=== PATIENT | male | born 1990 | race Hispanic/Latino ===

== ENCOUNTER 2023-04-14 14:18 | Emergency (ER) | payer OTHER ==
[~2023-04-14] VITALS: Ht 170.2 cm; Wt 98.4 kg
[2023-04-14 14:20] VITALS: BP 124/76
[2023-04-14] MEDS ORDERED: AMOX500C2 PO (16:25)
[2023-04-14] MEDS ORDERED: CEFTRIAXONE 1G VIAL IM ONE (16:30)
== END 2023-04-14 16:41 | disposition home or self-care (01) ==
LOC: EDH 14:18
DX: J02.0 Streptococcal pharyngitis (principal); M79.10 Myalgia, unspecified site; Z20.822 Contact with and (suspected) exposure to COVID-19
CPT/HCPCS: 99283; 87635; 87880; 87804 ×2; 96372; C9803; J0696

== ENCOUNTER 2024-04-18 11:07 | Emergency (ER) | payer BC ==
[~2024-04-18] VITALS: Ht 170.2 cm; Wt 97.5 kg
[~2024-04-18 11:07] MED LIST: AMOX500C2 PO
[2024-04-18] MEDS: IBUPROFEN 800 MG TAB PO ONE (12:28)
[2024-04-18 13:59] VITALS: BP 124/71; PULSE 64; RESP 18; O2SAT 98
== END 2024-04-18 14:02 | disposition home or self-care (01) ==
LOC: EDH 11:07
DX: G56.01 Carpal tunnel syndrome, right upper limb (principal); M79.644 Pain in right finger(s); M25.531 Pain in right wrist
CPT/HCPCS: 29125; 73130

== ENCOUNTER 2024-11-16 15:32 | Emergency (ER) | payer BC ==
[~2024-11-16] VITALS: Ht 167.6 cm; Wt 90.7 kg
[2024-11-16 15:42] VITALS: BP 155/90; PULSE 49; RESP 16; TEMP 98.6; O2SAT 100
[2024-11-16] MEDS ORDERED: CLIN-141 PO (15:46)
[2024-11-16] MEDS ORDERED: IBUP-2077 PO (15:46)
--- NOTE | 2024-11-16 15:46 | ERN ---
ED Note History of Present Illness Stated Complaint: HEAD PAIN Chief Complaint: Tooth Ache/Pain Time Seen by MD: 15:34 Dictation: Patient is a 34-year-old male here with complaints of dental pain and face pain onset yesterday. No fever no chills no nausea vomiting. NIH is 0. Allergies: Coded Allergies: No Known Allergies (Unverified Allergy, Unknown, 04/14/23) Home Meds Active Scripts Ibuprofen (Ibuprofen 800 mg Tab) 800 Mg Tab, 800 MG PO Q8H PRN for fever or pain, #30 TAB 0 Refills Prov:ELIZABETH MAIN [employer] 11/16/24 Clindamycin HCl (Clindamycin HCl) 300 Mg Capsule, 1 CAP PO QID for 10 Days, #40 CAP 0 Refills Prov:ELIZABETH MAIN [employer] 11/16/24 Amoxicillin (Amoxicillin) 500 Mg Capsule, 500 MG PO BID for 7 Days, #14 CAP 0 Refills Prov:TERESA SEGOVIA [employer] 04/14/23 Past Medical History Past Medical History: No Pertinent History Surgical History: Other Surgical History Other: KNEE SURGERY RN Note Reviewed/Agreed w/PFSH: Yes Review of System Dictation CONSTITUTIONAL: Negative except for HPI HEAD/FACE: Negative except for HPI EENT: Negative except for HPI dental pain RESPIRATORY: Negative except for HPI GASTROINTESTINAL/ABDOMINAL: Negative except for HPI GENITOURINARY: Negative except for HPI MUSCULOSKELETAL: Negative except for HPI INTEGUMENTARY: Negative except for HPI NEUROLOGICAL/PSYCH: Negative except for HPI HEMATOLOGIC/LYMPHATIC: Negative except for HPI All Systems Negative, Except as noted above. 13 point review of systems assessed and all negative except for above. Initial Vital Sign VS Vital Signs Date Time Temp Pulse Resp B/P (MAP) Pulse Ox O2 Delivery O2 Flow Rate FiO2 11/16/24 15:38 98.6 49 16 155/90 100 Room Air 0 11/16/24 15:42 21 Physical Exam Dictation Vital Signs reviewed General Appearance: Alert, oriented x 3, mild acute distress, well developed, nourished. Head and Face: non-traumatic. Eyes: PERRL, pink conjunctivas, eyelid no trauma, anterior chamber with arcus senilis. Ears: Pinnas intact and no signs of trauma or erythema ear canals clear and no discharge TM no erythema Nose: No discharge, no bleeding. Oropharynx: Mouth normal, tongue pink, dental caries with mild gingival tenderness at tooth 2. pharynx clear,no erythema, tonsils no exudates, no abscesses noted, mucous membrane moist Neck: Supple, non-tender, no thyromegaly, no masses, no JVD, no bruits Breast:Deferred Chest:No tenderness, no crepitus, no paradoxical movement, no retractions Lungs:Clear, well-ventilated, symmetric, no rales, no wheezing, no rhonchi, no stridor, good breath sounds bilaterally Heart: Regular rate, regular rhythm, no murmur, no gallops Vascular: no peripheral edema, Abdomen: Soft, positive bowel sounds, nondistended, no guarding, nontender, no rebound, no masses no hepatomegaly, no splenomegaly, no Spence's sign, no hernias. Rectal: Deferred Genital: Deferred Neurological: Normal speech, motor function intact, sensory function intact Musculoskeletal: Neck nontender, full range of motion, back nontender, full range of motion, Extremities: nontender, full range of motion Skin: Color pink, dry, no turgor, no rash, no lacerations, no abrasions, no contusions. Lymphatic: Deferred Results (Laboratory/Radiology) Labs Reviewed?: Yes ED Course ED Course Orders Procedure Category Date Status Time Ketorolac 60mg/2ml PHA 11/16/24 Complete (Toradol 60mg/2ml) 16:00 Current Medications Medications (Trade) Dose Ordered Sig/Anaid Route PRN Reason Start Time Stop Time Status Last Admin Dose Admin Ketorolac Tromethamine (toRADol 60MG/ 2ML) 60 mg ONCE ONCE IM 11/16/24 16:00 11/16/24 16:01 DC 11/16/24 15:56 Vital Signs Date Time Temp Pulse Resp B/P (MAP) Pulse Ox O2 Delivery O2 Flow Rate FiO2 11/16/24 15:42 98.6 49 16 155/90 100 Room Air* 0 21 11/16/24 15:38 98.6 49 16 155/90 100 Room Air 0 1545 Patient will be given shot of Toradol, discharged home with ibuprofen and clindamycin told to see the yellow pages for a referral to a dentist with the emergency number Medical Decision Making MDM Medical discharge making based on empiric treatment for dentalgia and dental caries Patient given Toradol 60 mg IM in the emergency room Discharged home with ibuprofen and clindamycin Told to find a local dentist with a an emergency hours number MDM: Differential diagnosis: Dental caries, dentalgia Risk of complication and/or morbidity or mortality of patient management: None Medications-Per medication reconciliation Need for hospitalization: Patient does not meet criteria for hospitalization. Need for emergency major/minor surgery: No There are no social concerns with this patient. Prescription drug management Prescriptions will include symptomatic care I independently interpreted the test that were performed, results were reviewed by me and considered findings on radiology if ordered. DX & DISP Disposition: Discharge Departure Impression: Primary Impression: Dental caries extending into pulp Additional Impression: Dentalgia Condition: Stable Scripts Ibuprofen (Ibuprofen 800 mg Tab) 800 Mg Tab 800 MG PO Q8H PRN for fever or pain, #30 TAB 0 Refills Prov: ELIZABETH [employer] 11/16/24 Clindamycin HCl (Clindamycin HCl) 300 Mg Capsule 1 CAP PO QID for 10 Days, #40 CAP 0 Refills Prov: ELIZABETH [employer] 11/16/24 Additional Instructions: Follow-up with primary care provider in 1 to 2 days. Take medications as directed here in the emergency room. Okay to continue home medications unless otherwise discussed during your visit in the emergency room today. Return to your nearest emergency room if symptoms worsen or if there is no improvement. Call 911 if you need immediate assistance. Take Tylenol or Motrin [id number] as needed and if no contraindications are present. Increase oral hydration. A wound culture or urine culture was ordered here in the emergency room department please follow-up with primary care provider and advise them to get repeat ports from our facility. If you had any Curly wrap/splints that were applied here, please do not remove them until you see your primary care or specialty. Take ibuprofen every8 hours with food for the next two days. Take clindamycin as directed until gone. Looking the yellow pages for a dentist with a an after hours emergency number Referrals: NONE (PCP) Time of Disposition: 15:45 I have reviewed the case, and I agree with, Diagnosis and Plan I performed the substantive portion of the visit. I have reviewed and personally made and approve the management plan that is documented in the notes by myself or the LOGAN. I acknowledge full responsibility for the patient's management plan. ELIZABETH MAIN NP Nov 16, 2024 15:46 MENDEZ MASTERSON MD Nov 17, 2024 18:33
[2024-11-16] MEDS: ketOROlac 60 MG VIAL (30MG/ML) IM ONE (15:56)
== END 2024-11-16 16:11 | disposition home or self-care (01) ==
LOC: EDH 15:32
DX: K02.9 Dental caries, unspecified (principal)
CPT/HCPCS: 99284; 96372; J1885